=== PATIENT | female | born 1955 | race Caucasian/White ===

== ENCOUNTER 2018-06-15 10:42 | Day surgery (SDC) | payer OTHER ==
[2018-06-15] MEDS ORDERED: CEFAZOLIN 2 GM/50 ML (PMX) 50 ML IVPB (12:00)
[2018-06-15] MEDS ORDERED: PROPOFOL 20 ML (12:22)
[2018-06-15] MEDS ORDERED: ROCURONIUM 50 MG INJ (12:22)
[2018-06-15] MEDS ORDERED: GLYCOPYRROLATE 0.4 MG INJ (12:22)
[2018-06-15] MEDS ORDERED: SUCCINYLCHOLINE CHLORIDE 100 MG/5 ML SYG IV (12:22)
[2018-06-15] MEDS ORDERED: LIDOCAINE 2% (SDV) 5 ML INJ (12:22)
[2018-06-15] MEDS ORDERED: NEOSTIGMINE 3 MG/3 ML SYRINGE (12:22)
[2018-06-15] MEDS ORDERED: ONDANSETRON 4 MG INJ (12:38)
[2018-06-15] MEDS ORDERED: METOCLOPRAMIDE 10 MG INJ (12:38)
[2018-06-15] MEDS: IOHEXOL 300MG/ML 30 ML BTL (12:49)
[2018-06-15] MEDS ORDERED: HYDROCODONE/APAP (5/325) TAB PO (13:30)
== END 2018-06-15 15:05 | disposition home or self-care (01) ==
LOC: SDS 10:42
DX: Z46.6 Encounter for fitting and adjustment of urinary device (principal); I10 Essential (primary) hypertension; E11.9 Type 2 diabetes mellitus without complications; E78.5 Hyperlipidemia, unspecified
CPT/HCPCS: 52310; 74420; 82962; 87086; 88300; 93005

== ENCOUNTER 2018-07-31 10:14 | Day surgery (SDC) | payer OTHER ==
[2018-07-31] MEDS ORDERED: PROPOFOL 60 ML (12:57)
[2018-07-31] MEDS ORDERED: LIDOCAINE 2% (SDV) 5 ML INJ (12:58)
== END 2018-07-31 14:59 | disposition home or self-care (01) ==
LOC: GIL 10:14
DX: R19.4 Change in bowel habit (principal); D12.5 Benign neoplasm of sigmoid colon; K21.9 Gastro-esophageal reflux disease without esophagitis; K29.70 Gastritis, unspecified, without bleeding; K64.8 Other hemorrhoids; E78.5 Hyperlipidemia, unspecified; E11.9 Type 2 diabetes mellitus without complications
CPT/HCPCS: 43239; 82962; 88305; 88312

== ENCOUNTER → 2019-07-04 | Outpatient (CLI) | payer MEDICARE, OTHER | END | disposition home or self-care (01) | LOC: NUC 08:32 | DX: C57.01 Malignant neoplasm of right fallopian tube (principal) | CPT/HCPCS: 78472 ==